=== PATIENT | female | born 1950 | race Caucasian/White ===

== ENCOUNTER → 2016-09-13 | Outpatient (CLI) | payer MEDICARE ==
--- NOTE | 2016-09-13 11:51 | RADRPT ---
EXAM DATE/TIME: 09/13/2016 11:09 [facility] COMPARISON: No previous studies available for comparison. INDICATIONS : Short of breath and fatigue MEDICAL HISTORY : None. SURGICAL HISTORY : None. ENCOUNTER: Initial ACUITY: 2 weeks PAIN SCORE: 0/10 LOCATION: chest FINDINGS: PA and lateral views of the chest demonstrate a normal-sized cardiac silhouette. There is no effusion , consolidation, or pneumothorax. The bones and soft tissues demonstrate no acute abnormality. There are mild degenerative changes of the thoracic spine. CONCLUSION: No acute cardiopulmonary abnormality is identified. Giovanni Tapia MD on September 13, 2016 at 11:49 Board Certified Radiologist. This report was verified electronically.
--- NOTE | 2016-09-14 20:20 | EKG ---
Date Performed: 09/13/2016 Time Performed: 10:51:25 PTAGE: 66 years EKG: Sinus rhythm VOLTAGE CRITERIA FOR LVH NONSPECIFIC T-WAVE ABNORMALITY ABNORMAL ECG PREVIOUS TRACING : 12/09/2012 09.22 Compared to prior tracing no significant change DOCTOR: Nishant Jorge Interpretating Date/Time 09/14/2016 20:19:36
== END ==
LOC: HCAV 10:32
PROVIDERS: ATTEND Family Medicine
DX: R53.83 Other fatigue (principal); R94.31 Abnormal electrocardiogram [ECG] [EKG]
CPT/HCPCS: 71020; 93005

== ENCOUNTER 2017-09-11 10:27 | Emergency (ER) | payer MEDICARE ==
[~2017-09-11] VITALS: Ht 162.6 cm; Wt 78.0 kg
[2017-09-11 10:56] VITALS: BP 144/90; PULSE 74; RESP 20; TEMP 97.8; O2SAT 98
[2017-09-11 11:29] LABS: AUTOMATED NEUTROPHIL # 2.2 TH/MM3 (1.8-7.7); BASOPHIL % 0.3 % (0.0-2.0); EOSINOPHIL % 0.2 % (0.0-4.0); HEMATOCRIT 42.8 % (35.0-46.0); HEMOGLOBIN 14.8 GM/DL (11.6-15.3); LYMPH % 35.2 % (9.0-44.0); LYMPHOCYTE # 1.4 TH/MM3 (1.0-4.8); MEAN CELL VOLUME 82.6 FL (80.0-100.0); MEAN CORPUSCULAR HEMOGLOBIN 28.5 PG (27.0-34.0); MEAN CORPUSCULAR HGB CONC 34.5 % (32.0-36.0); MEAN PLATELET VOLUME 7.6 FL (7.0-11.0); MONO % 8.9 % (0.0-8.0); MONOCYTE # 0.4 TH/MM3 (0-0.9); NEUT % 55.4 % (16.0-70.0); PLATELET COUNT 252 TH/MM3 (150-450); RED BLOOD COUNT 5.18 MIL/MM3 (4.00-5.30)
[2017-09-11 11:46] LABS: ALBUMIN 3.8 GM/DL (3.4-5.0); ALT (GPT) 25 U/L (10-53); AST (GOT) 27 U/L (15-37); BICARBONATE 30.1 MEQ/L (21.0-32.0); BLOOD UREA NITROGEN 10 MG/DL (7-18); CHLORIDE 104 MEQ/L (98-107); CREATININE 1.02 MG/DL (0.50-1.00); GLOMERULAR FILTRATION RATE 54 ML/MIN (>89); GLUCOSE,RANDOM 109 MG/DL (74-106); SODIUM (NA) 139 MEQ/L (136-145)
[2017-09-11 11:48] LABS: ALKALINE PHOSPHATASE 83 U/L (45-117); TOTAL BILIRUBIN ADULT 0.7 MG/DL (0.2-1.0); TOTAL PROTEIN 8.4 GM/DL (6.4-8.2)
[2017-09-11] MEDS ORDERED: SODIUM CHLOR 0.9% 1000 ML INJ 1,000 ML IV SCH (13:32)
[2017-09-11 13:36] VITALS: O2SAT 98
--- NOTE | 2017-09-11 13:36 | PD ---
HPI Chief Complaint: Abdominal Pain Time Seen by Provider: 13:26 Travel History International Travel<30 days: No Contact w/Intl Traveler<30days: No Traveled to known affect area: No History of Present Illness HPI The patient is a 67-year-old female presents to emergency department for nausea and vomiting that started 10 days ago. The patient initially thought she had the flu, however, her symptoms persisted. The patient was seen in urgent care on Saturday, had a negative flu test, was placed on Zithromax for possible upper respiratory infection at that time. However, she continues to have persistent nausea and vomiting with decreased oral intake. The patient returned to the urgent care earlier today, because her physician is out of town. The urgent care thought she may have a gallbladder issue and referred her to the emergency department for an ultrasound. Pain is located in the right upper quadrant, is worse with palpation, but she denies any postprandial symptoms. However, she does note decreased ability to eat secondary to persistent nausea and vomiting. She does note a few episodes of diarrhea. She had a fever earlier in the week as high as 103, but denies any current fever. She does have a history of previous gallstone. The patient's primary physician is Dr. Kris Goodman. The patient's certified medication aide is Dr. Serrano. [facility] Past Medical History Arthritis: Yes Asthma: Yes Blood Disorders: No Cancer: No Cardiovascular Problems: No High Cholesterol: Yes (NOT ON MEDS) Chest Pain: Yes (HX - NOT ON MEDS) Endocrine: No GERD: Yes Glaucoma: Yes Genitourinary: No Headaches: Yes Hiatal Hernia: Yes Hypertension: Yes Immune Disorder: No Musculoskeletal: Yes Neurologic: No Psychiatric: No Reproductive: No Respiratory: Yes Past Surgical History AICD: No Gynecologic Surgery: Yes (ABLATION; TUBAL LIGATION) Hysterectomy: Yes Insulin Pump: No Joint Replacement: No Oral Surgery: Yes (T&A CHILDHOOD) Pacemaker: No Thoracic Surgery: Yes Social History Alcohol Use: Yes Tobacco Use: No Substance Use: No Allergies-Medications (Allergen,Severity, Reaction): Coded Allergies: gadobenic acid (Unverified Allergy, Severe, ANAPHYLACTIC, 09/11/17) gadodiamide (Unverified Allergy, Severe, ANAPHYLACTIC, 09/11/17) gadoteridol (Unverified Allergy, Severe, ANAPHYLACTIC, 09/11/17) Mercurial Analogues (Unverified Allergy, Mild, Hives, 09/11/17) penicillin G (Unverified Allergy, Mild, Rash, 09/11/17) codeine (Unverified Adverse Reaction, Severe, HALLUCINATIONS/NAUSEA, ) propoxyphene (Unverified Adverse Reaction, Severe, HALLUCINATIONS/NAUSEA, 09/11/17) lorazepam (Unverified Adverse Reaction, Intermediate, HALLUCINATE, CONFUSION, 09/11/17) Uncoded Allergies: MERCURY (Allergy, Mild, Hives, 06/03/06) Reported Meds & Prescriptions Reported Meds & Active Scripts Active Review of Systems Except as stated in HPI: all other systems reviewed are Neg General / Constitutional: Positive: Fever (Fever earlier in the week as high as 103, denies fever today) HENT: No: Lightheadedness Cardiovascular: No: Chest Pain or Discomfort Respiratory: No: Shortness of Breath Gastrointestinal: Positive: Nausea, Vomiting, Diarrhea, Abdominal Pain Genitourinary: No: Dysuria Musculoskeletal: Positive: Weakness Physical Exam Narrative GENERAL: Awake, alert, pleasant 67-year-old female who appears her stated age and is in no acute respiratory distress. SKIN: Focused skin assessment warm/dry. HEAD: Atraumatic. Normocephalic. EYES: Pupils equal and round. No scleral icterus. No injection or drainage. ENT: No nasal bleeding or discharge. Dry mucous membranes. NECK: Trachea midline. No JVD. CARDIOVASCULAR: Regular rate and rhythm. No murmur appreciated. RESPIRATORY: No accessory muscle use. Clear to auscultation. Breath sounds equal bilaterally. GASTROINTESTINAL: Abdomen soft, tender to palpation right upper quadrant. No guarding or rigidity. MUSCULOSKELETAL: No obvious deformities. No clubbing. No cyanosis. No edema. NEUROLOGICAL: Awake and alert. No obvious cranial nerve deficits. Motor grossly within normal limits. Normal speech. PSYCHIATRIC: Appropriate mood and affect; insight and judgment normal. Data Data Last Documented VS Vital Signs Date Time Temp Pulse Resp B/P (MAP) Pulse Ox O2 Delivery O2 Flow Rate FiO2 09/11/17 13:36 98 Room Air 09/11/17 13:35 16 09/11/17 10:56 97.8 74 144/90 (108) Orders Orders Complete Blood Count With Diff (09/11/17 11:01) Comprehensive Metabolic Panel (09/11/17 11:01) Urinalysis - C+S If Indicated (09/11/17 11:01) Lipase (09/11/17 11:01) Us Abdomen Gallbladder (09/11/17 ) Iv Access Insert/Monitor (09/11/17 13:32) Ecg Monitoring (09/11/17 13:32) Oximetry (09/11/17 13:32) Morphine Inj (Morphine Inj) (09/11/17 13:45) Ondansetron Inj (Zofran Inj) (09/11/17 13:45) Sodium Chlor 0.9% 1000 Ml Inj (Ns 1000 M (09/11/17 13:32) Sodium Chloride 0.9% Flush (Ns Flush) (09/11/17 13:45) Ct Abd/Pel W Iv Contrast(Rout) (09/11/17 ) Iohexol 350 Inj (Omnipaque 350 Inj) (09/11/17 15:28) Famotidine Inj (Pepcid Inj) (09/11/17 16:00) Labs Laboratory Tests Test 09/11/17 11:07 White Blood Count 4.0 TH/MM3 Red Blood Count 5.18 MIL/MM3 Hemoglobin 14.8 GM/DL Hematocrit 42.8 % Mean Corpuscular Volume 82.6 FL Mean Corpuscular Hemoglobin 28.5 PG Mean Corpuscular Hemoglobin Concent 34.5 % Red Cell Distribution Width 15.0 % Platelet Count 252 TH/MM3 Mean Platelet Volume 7.6 FL Neutrophils (%) (Auto) 55.4 % Lymphocytes (%) (Auto) 35.2 % Monocytes (%) (Auto) 8.9 % Eosinophils (%) (Auto) 0.2 % Basophils (%) (Auto) 0.3 % Neutrophils # (Auto) 2.2 TH/MM3 Lymphocytes # (Auto) 1.4 TH/MM3 Monocytes # (Auto) 0.4 TH/MM3 Eosinophils # (Auto) 0.0 TH/MM3 Basophils # (Auto) 0.0 TH/MM3 CBC Comment DIFF FINAL Differential Comment Blood Urea Nitrogen 10 MG/DL Creatinine 1.02 MG/DL Random Glucose 109 MG/DL Total Protein 8.4 GM/DL Albumin 3.8 GM/DL Calcium Level 9.0 MG/DL Alkaline Phosphatase 83 U/L Aspartate Amino Transf (AST/SGOT) 27 U/L Alanine Aminotransferase (ALT/SGPT) 25 U/L Total Bilirubin 0.7 MG/DL Sodium Level 139 MEQ/L Potassium Level 3.6 MEQ/L Chloride Level 104 MEQ/L Carbon Dioxide Level 30.1 MEQ/L Anion Gap 5 MEQ/L Estimat Glomerular Filtration Rate 54 ML/MIN Lipase 191 U/L MDM Medical Decision Making Medical Screen Exam Complete: Yes Emergency Medical Condition: Yes Medical Record Reviewed: Yes Interpretation(s) Ultrasound of the gallbladder reveals mild increased echogenicity of the liver suggesting fatty infiltration. Examination is otherwise within normal limits. CT of the abdomen and pelvis reveals 12 mm hypodense lesion within the right hepatic lobe. Statistically this represents either a simple cyst or small hemangioma. Further characterization as an outpatient with MRI should be considered. Mild hepatic steatosis. Status post hysterectomy. No acute process. Laboratory Tests Test 09/11/17 11:07 White Blood Count 4.0 TH/MM3 Red Blood Count 5.18 MIL/MM3 Hemoglobin 14.8 GM/DL Hematocrit 42.8 % Mean Corpuscular Volume 82.6 FL Mean Corpuscular Hemoglobin 28.5 PG Mean Corpuscular Hemoglobin Concent 34.5 % Red Cell Distribution Width 15.0 % Platelet Count 252 TH/MM3 Mean Platelet Volume 7.6 FL Neutrophils (%) (Auto) 55.4 % Lymphocytes (%) (Auto) 35.2 % Monocytes (%) (Auto) 8.9 % Eosinophils (%) (Auto) 0.2 % Basophils (%) (Auto) 0.3 % Neutrophils # (Auto) 2.2 TH/MM3 Lymphocytes # (Auto) 1.4 TH/MM3 Monocytes # (Auto) 0.4 TH/MM3 Eosinophils # (Auto) 0.0 TH/MM3 Basophils # (Auto) 0.0 TH/MM3 CBC Comment DIFF FINAL Differential Comment Blood Urea Nitrogen 10 MG/DL Creatinine 1.02 MG/DL Random Glucose 109 MG/DL Total Protein 8.4 GM/DL Albumin 3.8 GM/DL Calcium Level 9.0 MG/DL Alkaline Phosphatase 83 U/L Aspartate Amino Transf (AST/SGOT) 27 U/L Alanine Aminotransferase (ALT/SGPT) 25 U/L Total Bilirubin 0.7 MG/DL Sodium Level 139 MEQ/L Potassium Level 3.6 MEQ/L Chloride Level 104 MEQ/L Carbon Dioxide Level 30.1 MEQ/L Anion Gap 5 MEQ/L Estimat Glomerular Filtration Rate 54 ML/MIN Lipase 191 U/L Differential Diagnosis Differential diagnosis includes gastritis, pancreatitis, peptic ulcer disease, enteritis, colitis, diverticulitis, biliary colic, cholecystitis, lower lobe pneumonia, viral syndrome. Narrative Course IV was established, labs were drawn and sent, and the patient was placed on cardiac telemetry monitoring and continuous pulse oximetry monitoring. The patient was administered morphine, Zofran, and IV fluids. White count, LFTs, lipase are normal. Ultrasound of the gallbladder was obtained. Ultrasound is unremarkable except for a possible cyst and/or hemangioma in the liver. Therefore, CT of the abdomen and pelvis was performed, this also reveals a cyst , can be followed as an outpatient. Lipase is unremarkable. The patient has persistent nausea and vomiting for 10 days duration, may benefit from endoscopy. The patient's certified medication aide, Dr. Serrano, was paged at 3:53 PM. The patient was administered Pepcid intravenously. I discussed the patient with Dr. Magaña, who is on-call for Dr. Serrano, he agrees that the patient may benefit from outpatient endoscopy. The office will call the patient tomorrow to schedule an outpatient appointment. The patient tolerated Zofran and water, I will discharge her home on Zofran and Pepcid. Clear liquid diet and advance as tolerated. Return if symptoms worsen or progress. Diagnosis Primary Impression: Nausea & vomiting Qualified Codes: R11.2 - Nausea with vomiting, unspecified Additional Impression: Gastritis Qualified Codes: K29.00 - Acute gastritis without bleeding Patient Instructions: General Instructions Additional Instructions: Follow-up with Dr. Serrano. Clear liquid diet and advance as tolerated. Medications as directed. Return if symptoms worsen or progress. Med/Other Pt SpecificInfo: Prescription(s) given Scripts Ondansetron Odt (Zofran Odt) 4 Mg Tab 4 MG SL Q6HR Y for Nausea/Vomiting, #10 TAB 0 Refills Prov: Phillip Beck MD 09/11/17 Ranitidine (Zantac) 150 Mg Tab 150 MG PO BID for Reduce Stomach Acid, #60 TAB 0 Refills Prov: Phillip Beck MD 09/11/17 Disposition: DISCHARGE HOME Condition: Stable Phillip Beck MD Sep 11, 2017 13:36
[2017-09-11] MEDS ORDERED: SODIUM CHLORIDE 0.9% FLUSH 10 ML FLUSH IV FLUSH PRN (13:45)
[2017-09-11] MEDS ORDERED: ONDANSETRON HCL 4 MG/2 ML VIAL IVP ONE (13:45)
[2017-09-11] MEDS ORDERED: MORPHINE SULFATE 4 MG/ML INJ IV PUSH ONE (13:45)
[2017-09-11] MEDS ORDERED: IOHEXOL 350 MG/ML 10 ML VIAL (for RAD DIAG) IVCONTRAST ONE (15:28)
--- NOTE | 2017-09-11 15:28 | RADRPT ---
EXAM DATE/TIME: 09/11/2017 14:36 [facility] COMPARISON: No previous studies available for comparison. INDICATIONS : Right upper quadrant pain. MEDICAL HISTORY : Gastroesophageal reflux disease. Hypercholesterolemia. Hypertension. Right upper quadrant pain. Glauc tiffanie. Hiatal hernia. Arthritis. SURGICAL HISTORY : Hysterectomy. Tubal ligation. Uterine ablation. Lumbar laminectomy. ENCOUNTER: Initial ACUITY: 1 week PAIN SCORE: 4/10 LOCATION: Right upper quadrant MEASUREMENTS: LIVER: 13.1 cm length COMMON DUCT: 3 mm RIGHT KIDNEY: 10.6 x 5.2 x 4.7 cm FINDINGS: LIVER: There is mildly increased echotexture of the liver which could suggest fatty infiltration. No intrahe patic biliary ductal dilation is identified. COMMON DUCT: No intraluminal mass or stone visualized. GALLBLADDER: Contains no stones, demonstrates no wall thickening or pericholecystic fluid. PANCREAS: The visualized portions are within normal limits. RIGHT KIDNEY: No evidence of hydronephrosis, stone, or mass. CONCLUSION: 1. Mild increased echogenicity of the liver suggesting fatty infiltration. Examination is otherwise w ithin normal limits. Steven Taylor MD on September 11, 2017 at 15:25 Board Certified Radiologist. This report was verified electronically.
--- NOTE | 2017-09-11 15:48 | RADRPT ---
EXAM DATE/TIME: 09/11/2017 15:17 [facility] COMPARISON: No previous studies available for comparison. INDICATIONS : Diffuse upper right region pain. IV CONTRAST: 94 cc Omnipaque 350 (iohexol) IV ORAL CONTRAST: No oral contrast ingested. RADIATION DOSE: 9.02 CTDIvol (mGy) MEDICAL HISTORY : Hypertension. SURGICAL HISTORY : Discectomy, lumbar. Hysterectomy.Tubal ligation. ENCOUNTER: Initial ACUITY: 2 weeks PAIN SCALE: 10/10 LOCATION: Right upper quadrant TECHNIQUE: Volumetric scanning of the abdomen and pelvis was performed. Using automated exposure control and ad justment of the mA and/or kV according to patient size, radiation dose was kept as low as reasonably achievable to obtain optimal diagnostic quality images. DICOM format image data is available electro nically for review and comparison. FINDINGS: LOWER LUNGS: The visualized lower lungs are clear. LIVER: A 1.2 cm hypodensity is identified between segments 6 and 7 of the right lobe. The liver is diffusely hypodense and demonstrates normal enhancement. There are no other focal lesions. There is no evidenc e of biliary duct dilatation. Portal vein is patent. There are no calcified gallstones SPLEEN: Normal size without lesion. PANCREAS: Within normal limits. KIDNEYS: Normal in size and shape. There is no mass, stone or hydronephrosis. ADRENAL GLANDS: Within normal limits. VASCULAR: There is no aortic aneurysm. BOWEL/MESENTERY: The stomach, small bowel, and colon demonstrate no acute abnormality. There is no free intraperitone al air or fluid. ABDOMINAL WALL: Within normal limits. RETROPERITONEUM: There is no lymphadenopathy. BLADDER: No wall thickening or mass. REPRODUCTIVE: Status post hysterectomy. Within normal limits. INGUINAL: There is no lymphadenopathy or hernia. MUSCULOSKELETAL: No acute process. CONCLUSION: 1. 12 mm hypodense lesion within the right hepatic lobe. Statistically this represents either a simpl e cyst or small hemangioma. Further characterization as an outpatient with MRI should be considered. 2. Mild hepatic steatosis. 3. Status post hysterectomy. 4. No acute process. Adi Foley MD on September 11, 2017 at 15:41 Board Certified Radiologist. This report was verified electronically.
[2017-09-11] MEDS ORDERED: FAMOTIDINE 20 MG/2 ML VIAL IV PUSH ONE (16:00)
[2017-09-11] MEDS ORDERED: ZANT150T2 PO (16:29)
[2017-09-11] MEDS ORDERED: ZOFR4TAB3 SL (16:29)
== END 2017-09-11 16:50 | disposition home or self-care (01) ==
LOC: NEPD 10:27
DX: R11.2 Nausea with vomiting, unspecified (principal); K29.00 Acute gastritis without bleeding; J45.909 Unspecified asthma, uncomplicated; M19.90 Unspecified osteoarthritis, unspecified site; E78.00 Pure hypercholesterolemia, unspecified; I10 Essential (primary) hypertension; Z88.0 Allergy status to penicillin; Z88.8 Allergy status to other drugs, medicaments and biological substances; Z88.5 Allergy status to narcotic agent
CPT/HCPCS: 74177; 76705; 80053; 83690; 85025; 96361; 96374; 96375; 99285; J2270; J2405; J7030; Q9967